=== PATIENT | female | born 1970 | race Caucasian/White ===

== ENCOUNTER 2019-01-25 15:24 | Emergency (ER) | payer OTHER ==
[~2019-01-25] VITALS: Ht 152.4 cm; Wt 65.8 kg
[~2019-01-25 15:24] MED LIST: LEVSIN/SL0.125 MG SL; PROTONIX40 MG PO; ZANTAC150 M3 PO
== END 2019-01-25 20:59 | disposition home or self-care (01) ==
LOC: ER 15:24
DX: B34.9 Viral infection, unspecified (principal)